=== PATIENT | male | born 1935 | race Caucasian/White ===

== ENCOUNTER → 2020-01-24 | Outpatient (CLI) | payer MEDICARE, OTHER ==
[~2020-01-24] MED LIST: CONTRAST GIVEN. MC PRN; IOHEXOL 350 MG/ML 100 ML VIAL. IV ONE
--- NOTE | 2020-01-24 14:05 | RAD ---
Examination: CHEST AP ONLY History: Reason: RF, PE / Spl. Instructions: / History: Comparison: None. Findings: AP portable upright frontal view of the chest was obtained. ET tube is in place. The cardiomediastinal silhouette is normal. Retrocardiac left basilar atelectatic consolidation is evident. There is no pneumothorax. No pleural effusion is appreciated. No acute bone abnormality. IMPRESSION: Retrocardiac left basilar atelectatic consolidation. Electronically signed by: Dimitry Brush MD (01/24/2020 2:02 PM) [facility]
--- NOTE | 2020-01-24 14:31 | RAD ---
Examination: CT ANGIOGRAPHY CHEST History: Reason: RESPIRATORY FAILURE, PE PROTOCOL / Spl. Instructions: IV OMNI 350 100 MLS / History: Comparison/Correlation: Chest x-ray performed earlier on the same day Findings: Axial images of the chest were obtained following IV contrast according to pulmonary arteriography protocol. Sagittal and coronal reformatted images were obtained. Maximum intensity projection images were provided. Respiratory motion of the lower lung henning is noted. Tracheostomy tube is in place. Mild right posterior costophrenic sulcus and linear atelectasis is evident. Subtle interstitial infiltrates at the right posterior midthoracic region are suggested. Motion limits evaluation. Complete left lower lobe atelectatic consolidation is present with retained secretions. Right mainstem bronchial cut off appearance with fluid density opacification distally is evident. Opacification of the left lower lobe bronchus with fluid density also seen. No significant left upper lobe or lingular atelectatic findings. Lingular branch pulmonary arterial thromboembolic disease is present. Minimal distal right lower lobe pulmonary arterial branch thrombi embolic disease is questioned. Thoracic aorta is unremarkable. Hepatic cyst measuring 2.1 cm diameter is present inferiorly. G-tube is in place. T12 and L1 vertebral compression deformities of indeterminate age noted. 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 Impression: Left lower lobe complete atelectasis with retained secretions. Opacification of the right distal left main bronchus is present. Correlate for underlying mass lesion or possibly mucus plugging accounting for these findings. Minimal interstitial infiltrates in the right lower lung field. Minimal right posterior basilar atelectasis. Lingular branch PE noted. Minimal PE involving right lower lobe pulmonary arterial branches distally questioned. 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 Entire abdominal aorta is not imaged for purposes of this exam. Further evaluation with dedicated CTA of the abdominal aorta is recommended if if not performed recently. T12 and L1 vertebral body compression deformities of indeterminate age. On 01/24/2020 2:27 PM, results reported to the referring physician. PQRS Compliance Statement: One or more of the following individualized dose reduction techniques were utilized for this examination: 1. Automated exposure control 2. Adjustment of the mA and/or kV according to patient size 3. Use of iterative reconstruction technique Electronically signed by: Dimitry Brush MD (01/24/2020 2:28 PM) [facility]
== END ==
LOC: CT 13:21
PROVIDERS: ATTEND Internal Medicine Pulmonary Disease
DX: J81.1 Chronic pulmonary edema (principal); J98.11 Atelectasis; I72.8 Aneurysm of other specified arteries; M43.8X5 Other specified deforming dorsopathies, thoracolumbar region
CPT/HCPCS: 71045; 71275; Q9967